=== PATIENT | male | born 1985 | race Caucasian/White ===

== ENCOUNTER 2017-12-22 12:59 | Outpatient (CLI) | payer OTHER | END 2017-12-22 13:12 | disposition home or self-care (01) | LOC: MRI 12:59 | DX: M54.5 Low back pain (principal) | CPT/HCPCS: 72148 ==

== ENCOUNTER 2025-01-12 14:32 | Outpatient (CLI) | payer OTHER | END 2025-01-12 14:39 | disposition home or self-care (01) | LOC: MRI 14:32 | PROVIDERS: ATTEND Physical Medicine & Rehabilitation | DX: M54.17 Radiculopathy, lumbosacral region (principal); M51.27 Other intervertebral disc displacement, lumbosacral region | CPT/HCPCS: 72148 ==